=== PATIENT | male | born 1965 | race Caucasian/White ===

== ENCOUNTER 2017-04-09 19:41 | Emergency (ER) | payer SELFPAY ==
[~2017-04-09 19:41] MED LIST: CYCL-36 PO; IBUP400T20 PO; LORT5TAB PO
[2017-04-09 19:46] VITALS: BP 153/87; PULSE 98; RESP 18; TEMP 98.4; O2SAT 96
[2017-04-09] MEDS ORDERED: DOXY100C PO (20:14)
[2017-04-09] MEDS ORDERED: BACT800T5 PO (20:14)
[2017-04-09] MEDS ORDERED: DOXYCYCLINE HYCLATE 100 MG CAP PO ONE (20:15)
[2017-04-09] MEDS ORDERED: SULFAMETHOXAZOLE-TRIMETHOPRIM DS 800-160 MG TAB PO ONE (20:15)
--- NOTE | 2017-04-09 20:15 | PD ---
HPI Chief Complaint: Skin Problem Time Seen by Provider: 20:08 Travel History International Travel<30 days: No Contact w/Intl Traveler<30days: No Traveled to known affect area: No History of Present Illness HPI The patient is a 52-year-old male who states he fell 9 days ago and sustained abrasions to his left forearm. He states there not getting better and he thinks they're probably infected. His last tetanus shot was 4-5 years ago. PFSH Past Medical History Autoimmune Disease: No Blood Disorders: No Anxiety: Yes Depression: Yes Cancer: No Cardiovascular Problems: Yes Chemotherapy: No COPD: Yes (emphysema) Endocrine: No Gastrointestinal Disorders: No GERD: No Genitourinary: No Hiatal Hernia: No Hypertension: Yes (does not take medication) Immune Disorder: No Musculoskeletal: Yes Neurologic: No Psychiatric: Yes Reproductive: No Radiation Therapy: No Ulcer: No Tetanus Vaccination: > 5 Years Influenza Vaccination: No PNEUMOCCOCAL Vaccine (Year): 2 Past Surgical History Abdominal Surgery: Yes AICD: No Appendectomy: Yes Arteriovenous Shunt: No Cholecystectomy: Yes Insulin Pump: No Joint Replacement: No Oral Surgery: Yes (TONSILS) Pacemaker: No Tonsillectomy: Yes Other Surgery: Yes (tonsils) Social History Alcohol Use: Yes (6 BEERS A DAY) Tobacco Use: Yes (2 PPD) Substance Use: No Allergies-Medications (Allergen,Severity, Reaction): Coded Allergies: No Known Allergies (Verified , 04/09/17) Reported Meds & Prescriptions Reported Meds & Active Scripts Active Bactrim DS (Sulfamethoxazole-Trimethoprim) 800-160 Mg Tab 1 Tab PO BID Doxycycline Hyclate 100 Mg Cap 100 Mg PO BID Flexeril (Cyclobenzaprine HCl) 10 Mg Tab 10 Mg PO TID Lortab 5/500 (Acetaminophen/Hydrocodone Bitart) 5 Mg/500 Mg Tab 1 Tab PO Q6HPRN FOR PAIN Reported Ibuprofen 400 Mg Tab 400 Mg PO DIRECTED Review of Systems Except as stated in HPI: all other systems reviewed are Neg Physical Exam Narrative GENERAL: Well-nourished, well-developed patient. SKIN: Focused skin assessment warm/dry. Associated with the abrasions appears to be some slight cellulitis as well as some pustules that have drained. These are consistent with staph. No abscess is present. HEAD: Normocephalic. EYES: No scleral icterus. No injection or drainage. NECK: Supple, trachea midline. No JVD or lymphadenopathy. CARDIOVASCULAR: Regular rate and rhythm without murmurs, gallops, or rubs. RESPIRATORY: Breath sounds equal bilaterally. No accessory muscle use. GASTROINTESTINAL: Abdomen soft, non-tender, nondistended. MUSCULOSKELETAL: No cyanosis, or edema. BACK: Nontender without obvious deformity. No CVA tenderness. Data Data Last Documented VS Vital Signs Date Time Temp Pulse Resp B/P (MAP) Pulse Ox O2 Delivery O2 Flow Rate FiO2 04/09/17 19:58 20 04/09/17 19:46 98.4 98 153/87 (109) 96 Orders Orders Doxycycline (Vibramycin) (04/09/17 20:15) Sulfamet-Trimeth Ds 800-160 Mg (Bactrim (04/09/17 20:15) MDM Medical Decision Making Medical Screen Exam Complete: Yes Emergency Medical Condition: Yes Medical Record Reviewed: Yes Differential Diagnosis Cellulitis, abscess, staph infection Narrative Course The patient has mostly cellulitis from infected abrasions. He does have a few pustules that he has drained. This is very likely a staph infection. He will be given doxycycline and Septra for 10 days. Diagnosis Primary Impression: Infected abrasion of forearm Additional Instructions: Keep your left forearm clean and dry. Both antibiotics are one tablet twice daily. You can continue to apply antibiotic ointment to the exposed areas. Follow-up with a primary care physician or return to emergency department if not better. Med/Other Pt SpecificInfo: Prescription(s) given Scripts Sulfamethoxazole-Trimethoprim (Bactrim DS) 800-160 Mg Tab 1 TAB PO BID for Infection, #20 TAB 0 Refills Prov: Umer Davis MD 04/09/17 Doxycycline Hyclate (Doxycycline Hyclate) 100 Mg Cap 100 MG PO BID for Infection, #20 CAP 0 Refills Prov: Umer Davis MD 04/09/17 Disposition: 01 DISCHARGE HOME Condition: Stable Umer Davis MD Apr 09, 2017 20:15
== END 2017-04-09 20:40 | disposition home or self-care (01) ==
LOC: PHEFT 19:41
DX: S50.812A Abrasion of left forearm, initial encounter (principal); L08.9 Local infection of the skin and subcutaneous tissue, unspecified; W19.XXXA Unspecified fall, initial encounter
CPT/HCPCS: 99284

== ENCOUNTER 2017-12-14 15:36 | Emergency (ER) | payer SELFPAY ==
[~2017-12-14] VITALS: Ht 182.9 cm; Wt 110.0 kg
[~2017-12-14 15:36] MED LIST changes: +BACT800T5 PO; +DOXY100C PO
[2017-12-14 15:45] VITALS: BP 125/68; PULSE 111; RESP 26; O2SAT 98
[2017-12-14 15:50] VITALS: TEMP 98.7
[2017-12-14] MEDS ORDERED: LORazepam 1 MG TAB PO ONE (16:00)
[2017-12-14] MEDS ORDERED: CEPHALEXIN MONOHYDRATE 500 MG CAP PO ONE (16:00)
[2017-12-14] MEDS ORDERED: ONDANSETRON ODT 4 MG TAB PO ONE (16:00)
[2017-12-14] MEDS ORDERED: CEPH-460 PO (16:58)
--- NOTE | 2017-12-14 16:58 | PD ---
HPI Chief Complaint: Anxiety Time Seen by Provider: 15:46 Travel History International Travel<30 days: No Contact w/Intl Traveler<30days: No Traveled to known affect area: No History of Present Illness HPI Is a 52-year-old male presents emerged department stating he has been using IV drugs for the past 5 days and feels funny now. States he feels jittery and unwell. He is anxious. He states he has skin infections in his left arm which is painful. No other complaints. History Past Medical History Narrative Medical Illicit drug use PNEUMOCCOCAL Vaccine (Year): 2 Social History Alcohol Use: Yes (6 BEERS A DAY) Tobacco Use: Yes (2 PPD) Allergies-Medications (Allergen,Severity, Reaction): Coded Allergies: No Known Allergies (Verified , 04/09/17) Reported Meds & Prescriptions Reported Meds & Active Scripts Active No Active Prescriptions or Reported Medications Review of Systems Except as stated in HPI: all other systems reviewed are Neg Physical Exam Narrative GENERAL: 52-year-old man, uncomfortable, tweaking. SKIN: Focused skin assessment warm/dry. HEAD: Atraumatic. Normocephalic. EYES: Pupils equal and round. No scleral icterus. No injection or drainage. ENT: No nasal bleeding or discharge. Mucous membranes pink and moist. NECK: Trachea midline. No JVD. CARDIOVASCULAR: Regular rate and rhythm. No murmur appreciated. RESPIRATORY: No accessory muscle use. Clear to auscultation. Breath sounds equal bilaterally. GASTROINTESTINAL: Abdomen soft, non-tender, nondistended. Hepatic and splenic margins not palpable. MUSCULOSKELETAL: No obvious deformities. Multiple areas of track fontenot on the left arm. Little bit of erythema. No significant swelling. No definite abscess. NEUROLOGICAL: Awake and alert. No obvious cranial nerve deficits. Motor grossly within normal limits. Normal speech. PSYCHIATRIC: Appropriate mood and affect; insight and judgment normal. Data Data Last Documented VS Vital Signs Date Time Temp Pulse Resp B/P (MAP) Pulse Ox O2 Delivery O2 Flow Rate FiO2 12/14/17 15:50 98.7 12/14/17 15:45 111 26 125/68 (87) 98 Orders Orders Lorazepam (Ativan) (12/14/17 16:00) Ondansetron Odt (Zofran Odt) (12/14/17 16:00) Cephalexin (Keflex) (12/14/17 16:00) [facility] Medical Decision Making Medical Screen Exam Complete: Yes Emergency Medical Condition: Yes Differential Diagnosis Illicit drug use, abscess, tachycardia, other Narrative Course 52-year-old male presents with adverse effects of illicit drug use. Is got some superficial pustules and a little bit of swelling on the left arm, may be very early infection, probably just track fontenot. Given a dose of Ativan here to help with anxiety. Otherwise antibiotics and avoid illicit drug use. Diagnosis Primary Impression: Drug abuse Patient Instructions: General Instructions Additional Instructions: Avoid illicit drug use. Drink plenty fluids and stay well-hydrated. Return to the emergency department for any new or worsening symptoms. Med/Other Pt SpecificInfo: Prescription(s) given Scripts Cephalexin (Keflex) 500 Mg Cap 500 MG PO Q8H for Infection, #30 CAP 0 Refills Prov: Wilbur Diaz MD 12/14/17 Disposition: 01 DISCHARGE HOME Condition: Stable Wilbur Diaz MD Dec 14, 2017 16:58
[2017-12-14 17:42] VITALS: BP 145/75; PULSE 87; RESP 24; O2SAT 98
[2017-12-14 19:15] VITALS: BP 140/74; PULSE 96; RESP 18; O2SAT 97
== END 2017-12-14 21:23 | disposition home or self-care (01) ==
LOC: NEPD 15:36
DX: F19.10 Other psychoactive substance abuse, uncomplicated (principal); F17.200 Nicotine dependence, unspecified, uncomplicated; F41.9 Anxiety disorder, unspecified
CPT/HCPCS: 99283